=== PATIENT | male | born 1990 ===

== ENCOUNTER 2020-11-28 16:39 | Emergency (ER) | payer OTHER ==
[~2020-11-28] VITALS: Ht 167.6 cm; Wt 81.7 kg
[~2020-11-28 16:39] MED LIST: CLIN300 PO; Norco 5-325 Ta1 EACH PO
[2020-11-28] MEDS ORDERED: CEPH500 PO (18:51)
[2020-11-28] MEDS ORDERED: SULTRIDS PO (18:51)
== END 2020-11-28 18:54 | disposition home or self-care (01) ==
LOC: ER 16:39
DX: S61.432A Puncture wound without foreign body of left hand, initial encounter (principal); F17.200 Nicotine dependence, unspecified, uncomplicated; W27.0XXA Contact with workbench tool, initial encounter
CPT/HCPCS: 73130; 90471; 90714; 99283-25; A9270

== ENCOUNTER 2021-12-24 12:29 | Emergency (ER) | payer OTHER ==
[~2021-12-24] VITALS: Ht 167.6 cm; Wt 72.6 kg
[~2021-12-24 12:29] MED LIST changes: +CEPH500 PO; +SULTRIDS PO
[2021-12-24] MEDS ORDERED: METHYLPHENIDATE18 MG PO (12:59)
== END 2021-12-24 13:28 | disposition home or self-care (01) ==
LOC: ER 12:29
DX: S22.31XA Fracture of one rib, right side, initial encounter for closed fracture (principal); F17.200 Nicotine dependence, unspecified, uncomplicated; X58.XXXA Exposure to other specified factors, initial encounter
CPT/HCPCS: 71046; 99283-25

== ENCOUNTER 2022-01-03 12:58 | Emergency (ER) | payer OTHER ==
[~2022-01-03] VITALS: Ht 167.6 cm; Wt 72.6 kg
[~2022-01-03 12:58] MED LIST changes: +METHYLPHENIDATE18 MG PO
== END 2022-01-03 13:35 | disposition home or self-care (01) ==
LOC: ER 12:58
DX: Z02.89 Encounter for other administrative examinations (principal); F17.200 Nicotine dependence, unspecified, uncomplicated
CPT/HCPCS: 99282